=== PATIENT | female | born 1970 | race American Indian/Alaskan Native ===

== ENCOUNTER 2018-05-12 15:02 | Outpatient (CLI) | payer OTHER ==
--- NOTE | 2018-05-13 07:30 | XRay Report ---
PROCEDURE: PORTABLE CHEST TECHNIQUE: A portable AP chest radiograph was obtained at 05/12/2018 19:37 CDT. CPT 03688 HISTORY: Preoperative assessment. COMPARISONS: None. FINDINGS: Heart: Normal. Mediastinum/Vessels: Normal. Lungs/Pleural space: Normal. Bony thorax: No acute osseous abnormality. Life support devices: None. IMPRESSION: No acute cardiopulmonary abnormality. This document is electronically signed by Camilo Whiting MD., May 13 2018 07:28:52 AM ET
== END 2018-05-12 15:03 | disposition home or self-care (01) ==
LOC: XRAY 15:02
DX: Z01.818 Encounter for other preprocedural examination (principal); R05 Cough; Z88.6 Allergy status to analgesic agent
CPT/HCPCS: 71046